=== PATIENT | male | born 1960 | race Caucasian/White ===

== ENCOUNTER 2017-02-06 07:19 | Day surgery (SDC) | payer BC, MEDICAID, OTHER, SELFPAY ==
[~2017-02-06 07:19] MED LIST: Lactated Ringers 1,000 ML IV SCH
[2017-02-06] MEDS ORDERED: Propofol 200 MG/20 ML SDV IV ONE (08:30)
--- NOTE | 2017-02-06 08:56 | PCM.OPNOTE ---
- General Post-Op/Procedure Note Date of Surgery/Procedure: 02/06/17 Operative Procedure(s): c scope Findings: diverticulosis Pre Op Diagnosis: screening for colon cancer Post-Op Diagnosis: diverticulosis Anesthesia Technique: SHONA Primary Surgeon: Ruy Barnett Anesthesia Provider: Dom Oakley Pathology: none Complications: None Condition: Good Free Text/Narrative:: see dictation
[2017-02-06 10:28] VITALS: BP 112/68
--- NOTE | 2017-02-06 11:28 | OR ---
DATE OF OPERATION: 02/06/2017 SURGEON: Ruy Barnett MD PROCEDURE PERFORMED: Colonoscopy. PREOPERATIVE DIAGNOSIS: Need for screening colonoscope. POSTOPERATIVE DIAGNOSIS: Diverticulosis. INDICATIONS FOR PROCEDURE: This is a 56-year-old white male, who presents for screening colonoscopy. He was offered and accepted the same. DESCRIPTION OF OPERATION: After an excellent IV sedation was administered, digital rectal exam was performed. No marked abnormality was noted. Flexible colonoscope was inserted and advanced to the cecum without difficulty. The following findings were noted. Ascending colon, occasional diverticulum. Transverse colon, occasional diverticulum. Descending colon, occasional diverticulum. Sigmoid and rectum, occasional diverticulum. The rectal mucosa was unremarkable. The colon was deflated, scope was removed. The patient tolerated the procedure well and was taken to recovery room in good condition. /[id number] /MODL
== END 2017-02-06 10:23 | disposition home or self-care (01) ==
LOC: FB.SDS 07:19
PROVIDERS: ATTEND Surgery
DX: Z12.11 Encounter for screening for malignant neoplasm of colon (principal); K57.30 Diverticulosis of large intestine without perforation or abscess without bleeding; K21.9 Gastro-esophageal reflux disease without esophagitis; E78.5 Hyperlipidemia, unspecified; I10 Essential (primary) hypertension; J45.909 Unspecified asthma, uncomplicated; Z98.890 Other specified postprocedural states; Z87.891 Personal history of nicotine dependence; Z91.09 Other allergy status, other than to drugs and biological substances; Z79.82 Long term (current) use of aspirin; Z79.899 Other long term (current) drug therapy
CPT/HCPCS: 45378; 93005; J7120; J2704

== ENCOUNTER 2022-03-29 13:58 | Emergency (ER) | payer MEDICAID, OTHER ==
[2022-03-29] MEDS ORDERED: Metoprolol Tartrate 50 MG Tab PO ONE (14:36)
[2022-03-29] MEDS ORDERED: Aspirin 81 MG Tab.Chew PO ONE (14:36)
[2022-03-29] MEDS ORDERED: Lisinopril 20 MG Tab PO SCH (15:30)
[2022-03-29 15:33] LABS: HEMOGLOBIN A1C 6.6 % (<5.7)
[2022-03-29] MEDS ORDERED: metFORMIN 500 MG Tab.ER PO STA ×2 (15:56→16:21)
[2022-03-29 19:21] VITALS: PULSE 78
[2022-03-29 19:36] VITALS: BP 168/104
== END 2022-03-29 17:45 | disposition home or self-care (01) ==
LOC: FB.ED 13:58
DX: R07.89 Other chest pain (principal); R73.9 Hyperglycemia, unspecified; I16.9 Hypertensive crisis, unspecified; E78.00 Pure hypercholesterolemia, unspecified; I10 Essential (primary) hypertension; K21.9 Gastro-esophageal reflux disease without esophagitis; Z79.899 Other long term (current) drug therapy; Z79.82 Long term (current) use of aspirin; Z79.84 Long term (current) use of oral hypoglycemic drugs; Z91.09 Other allergy status, other than to drugs and biological substances
CPT/HCPCS: 36415; 80048; 83036; 84484; 85027; 93005; 93010; 99283; 99285-25; A9270-GY